=== PATIENT | female | born 1965 | race Caucasian/White ===

== ENCOUNTER 2021-08-10 18:29 | Emergency (ER) | payer OTHER, MEDICARE ==
[~2021-08-10 18:29] MED LIST: ACETAMINOPHEN500 M1 PO; ADVAIR 100-501 EACH INH; ADVIL200 M1 PO; ALCLOMETASONE D TOP; ALLEGRA ALLERG180 MG PO; CALTRATE 600 +1 EAC1 PO; CERTAGEN1 EACH PO; CYMBALTA60 MG PO; FLEXERIL10 MG PO; GABAPENTIN800 MG PO; LOVAZA1 GM PO; MEDROL 4MG DOSEP4 MG PO; NEURONTIN600 MG PO; NEURONTIN800 MG PO; NIZORAL A-D125 ML TOP; NORCO 5-325 TA1 EAC1 PO; NORCO 5-325 TA1 EACH PO; NORCO 5/3251 EACH PO; ONDANSETRON ODT8 MG PO; TOLTERODINE TART4 MG PO; VESICARE5 MG PO; VITAMIN B-121000 MC1 IM; VITAMIN D32000 UNI1 PO; VITAMIN D400 UNIT PO; WELLBUTRIN75 MG PO; ZOFRAN4 MG PO; [UNRECOGNIZED DRUG - OTHER] PO
[2021-08-10 21:48] LABS: BASOPHIL 0.4 % (0-2); EOSINOPHIL 4.3 % (0-5); HCT 45.5 % (37.0-47.0); HGB 14.7 g/dl (12.5-16.0); MCH 29.9 pg (25.0-31.0); MCHC 32.3 g/dL (32.0-36.0); MCV 92.7 fL (78.0-100.0); MPV 10.8 fL (6.0-9.5); NEUTROPHIL 65.1 % (41-80); NRBC 0; PLT 254 K/uL (150-400); RBC 4.91 M/uL (4.20-5.40); RDW 14.6 % (11.5-14.0); WBC 8.1 K/uL (4.0-10.5)
[2021-08-10 22:01] LABS: BUN/CREAT RATIO (CALC) 9.9 RATIO; CREATININE 0.71 mg/dL (0.51-0.95); POTASSIUM 4.8 mmol/L (3.5-5.1)
[2021-08-10 22:09] LABS: BILIRUBIN NEGATIVE (NEGATIVE); BLOOD NEGATIVE Ery/uL (NEGATIVE); CLARITY CLEAR (CLEAR); COLOR YELLOW (YELLOW); GLUCOSE (U) NORMAL (NORMAL); LEUKOCYTES NEGATIVE Leu/uL (NEGATIVE); NITRITE NEGATIVE (NEGATIVE); PROTEIN NEGATIVE (NEGATIVE); SPECIFIC GRAVITY 1.015 (1.001-1.030); UROBILINOGEN 0.2 mg/dL (0.2-1.0); pH 7.5 (5.0-9.0)
[2021-08-10] MEDS ORDERED: MEDROL 4MG DOSEP4 MG PO (22:37)
[2021-08-10] MEDS ORDERED: PERCOCET 5-3251 EACH PO (22:37)
[2021-08-10] MEDS ORDERED: CALCITONIN-SAL3.7 ML (22:57)
== END 2021-08-10 23:05 | disposition home or self-care (01) ==
LOC: FER 18:29
PROVIDERS: Internal Medicine
DX: S32.049A Unspecified fracture of fourth lumbar vertebra, initial encounter for closed fracture (principal); M54.41 Lumbago with sciatica, right side; Z88.1 Allergy status to other antibiotic agents; Z91.040 Latex allergy status; X50.9XXA Other and unspecified overexertion or strenuous movements or postures, initial encounter; Y93.89 Activity, other specified; Y92.009 Unspecified place in unspecified non-institutional (private) residence as the place of occurrence of the external cause
CPT/HCPCS: 36415; 72131; 80048; 81003; 85025; 96372; J1170; J2930